=== PATIENT | male | born 1960 | race Caucasian/White ===

== ENCOUNTER → 2019-08-13 10:26 | Outpatient (POV) | payer BC, SELFPAY | PROVIDERS: Visit Provider Dermatology | DX: Z00.00 Encounter for general adult medical examination without abnormal findings (principal) ==

== ENCOUNTER → 2019-09-23 09:47 | Outpatient (CLI) | payer BC, SELFPAY ==
--- NOTE | 2019-09-23 09:55 | US_ITS ---
PROCEDURE: US THYROID CLINICAL INDICATION: THYROMEGALY Thyromegaly with sore throat COMPARISON: No exams were available for comparison FINDINGS: Right lobe: 3.8 x 1.3 x 1.4 cm. 3 mm hypoechoic nodule mid polar region. 3 mm hypoechoic nodule lower pole. 4 mm hypoechoic nodule lower pole. These hypoechoic nodules are felt represent small cyst Left lobe: 4.4 x 2.2 x 2.6 cm. There is a 4 x 2.4 x 1.7 cm solid-appearing heterogeneous nodule post the left lobe of the thyroid gland. There is some coarse calcification centrally and there are some small cystic areas. This lesion is wider than tall. There is hypervascularity along the periphery of this nodule there is an additional hypoechoic nodule in the lower pole at 1.3 cm Isthmus: Unremarkable Additional findings: IMPRESSION: Dominant left thyroid nodule at 4 x 2.4 x 1.7 cm T rads level 4 moderately suspicious. Recommend ultrasound-guided fine needle aspiration. Dictated by: Eleuterio Cook MD 09/23/2019 12:37 Electronically signed by Eleuterio Cook MD in [place] 09/23/2019 12:37
== END ==
PROVIDERS: PCP Family Medicine; Visit Provider Family Medicine
DX: E01.0 Iodine-deficiency related diffuse (endemic) goiter (principal)
CPT/HCPCS: 76536

== ENCOUNTER → 2019-10-09 09:53 | Outpatient (CLI) | payer BC, SELFPAY ==
--- NOTE | 2019-10-09 10:01 | US_ITS ---
PROCEDURE: US FNA THYROID CLINICAL INDICATION: THYROID NODULE Dominant left thyroid nodule, T rads level 4 moderately suspicious COMPARISON: US THYROID from 09/23/2019 TECHNIQUE: Following obtaining informed consent, using aseptic technique and local anesthesia with buffered lidocaine, fine-needle aspiration was performed of the nodule of interest using sonographic guidance. 3 passes were made into the nodule with a 21-gauge needle. Specimen was given to cytology. FINDINGS: Two different specimen worse submitted from the same nodule 1 of which was fairly bloody. CYTOLOGY: Specimen A: Negative for malignant cells. Benign follicular nodule Specimen B was mostly bloody with less than 6 follicular groups. These were both from the same nodule IMPRESSION: Uneventful ultrasound-guided fine needle aspiration dominant left-sided thyroid nodule showing benign findings. The patient tolerated the procedure well without evidence of immediate complications and left the ultrasound suite in stable condition. Dictated by: Eleuterio Cook MD 10/30/2019 17:08 Electronically signed by Eleuterio Cook MD in [place] 10/30/2019 17:08
== END ==
PROVIDERS: PCP Family Medicine; Visit Provider Family Medicine
DX: E04.1 Nontoxic single thyroid nodule (principal)
CPT/HCPCS: 10005; 10006; 76942

== ENCOUNTER → 2021-07-19 16:38 | Outpatient (CLI) | payer OTHER, SELFPAY ==
[2021-07-19 18:19] LABS: Chloride 99 mmol/L (98-107); Sodium 139 mmol/L (136-145)
[2021-07-19 18:20] LABS: Potassium 4.6 mmoL/L (3.5-5.1)
[2021-07-19 18:23] LABS: Anion Gap 14.6 mEq/L (5-15); Blood Urea Nitrogen 18 mg/dl (9-20); Calcium 9.9 mg/dl (8.4-10.2); Carbon Dioxide 30 mmol/L (22.0-30.0); Estimated Glomerular Filt Rate 99 ml/min (>60); GFR (African American) 120 ML/MIN (>60); Glucose 113 mg/dl (74-100)
== END ==
PROVIDERS: Visit Provider Family Medicine
DX: E11.9 Type 2 diabetes mellitus without complications (principal); Z79.84 Long term (current) use of oral hypoglycemic drugs
CPT/HCPCS: 36415; 80048; 83036

== ENCOUNTER 2021-11-16 16:21 | Emergency (ER) | payer OTHER, SELFPAY ==
[2021-11-16 17:41] VITALS: BP 138/76; PULSE 85; RESP 16; TEMP 36.8; O2SAT 97; BMI 22.4
--- NOTE | 2021-11-16 18:06 | HMH.EDUTC ---
[facility] [place] Clinical Impression: Cellulitis Qualifiers: Site of cellulitis: extremity Site of cellulitis of extremity: upper extremity Laterality: left Qualified Code(s): L03.114 - Cellulitis of left upper limb Disposition: Home, Self-Care Condition on Discharge: Good Instructions: Cellulitis Additional Instructions: Take tylenol or ibuprofen for pain or fever. Take the medications as directed. Follow up with your regular doctor. GO TO THE ER FOR ANY WORSENING SYMPTOMS Prescriptions: Sulfamethoxazole/Trimethoprim [Bactrim DS tablet] 1 each PO BID 10 Days #20 tab [facility] cephALEXin [cephALEXin 500mg capsule] 500 mg PO Q6H 10 Days #40 cap Transmission Status: [facility] methylPREDNISolone [Medrol] 4 mg PO DIRECTED 6 Days #21 packet Transmission Status: Received by [id number] Triamcinolone Acetonide 1 applicatio TP TIDP PRN 7 Days #1 gm PRN Reason: Itching Transmission Status: [facility] Referrals: Alfred Fong MD [Primary Care Provider] - Time of Disposition: 18:32 Medical Decision Making - Medical Records Medical records reviewed: No: I reviewed the patient's medical records. - Cma Inquiry Pt receiving controlled substance: No Vital Signs: 11/16/21 17:41 11/16/21 18:40 Temperature 98.3 F 98.3 F Temperature Source Oral Pulse Rate 85 Pulse Rate [Left Radial] 85 Respiratory Rate 16 16 Blood Pressure 138/76 Blood Pressure [Right Arm] 138/76 Blood Pressure Mean [Right Arm] 96 Blood Pressure Source [Right Arm] Automatic Cuff Blood Pressure Position [Right Arm] Sitting 02 Sat by Pulse Oximetry 97 Oxygen Delivery Method Room Air Orders (Tests/Meds): ED MEDICATIONS Discontinued Medications Generic Name Dose Route Start Last Admin Trade Name Freq PRN Reason Stop Dose Admin Ceftriaxone Sodium 1 gm 11/16/21 18:06 11/16/21 18:17 Ceftriaxone 1gm Vial IM 11/16/21 18:07 1 gm ONCE ONE Administration Lidocaine HCl 0 ml 11/16/21 18:06 11/16/21 18:17 Lidocaine 1% 5ml Pf Vial IM 11/16/21 18:07 2 ml ONCE ONE Administration [facility] [place] - General Stated complaint: L arm possibly allergic reaction Time Seen by Provider: 11/16/21 18:07 Mode of Arrival: Ambulatory Source of Information: Patient Limitations: No Limitations Description of Symptoms (Recalled from Triage Doc. by RN): C/O redness, swelling and rash to left forearm. Advises that he noticed a bite/sting kannan on Monday evening, itching become worse yesterday, and the redness and swelling has worsened and spread today. HEENT Symptoms (Recalled from RN notes): No Resp Symptoms (Recalled from RN notes): No Skin Symptoms (Recalled from RN notes): Yes (left forearm rash) MS Symptoms (Recalled from RN notes): No Functional Status (Recalled from RN notes): n/a - History of Present Illness Provider Complaint: He states that he thinks that something bit him on his left arm 3 days ago. He states that today, he started that today he began having redness of his left arm in 3 differnt areas. HE is a type 2 diabetic. - Related Data Home Medications Medication Instructions Recorded Confirmed Metformin HCl [Glucophage 500mg 1,000 mg PO BID MDD 199901/11/18 09/15/20 Tablet] Simvastatin 20 mg PO HS 01/11/18 09/15/20 lisinopriL [Lisinopril 20mg Tab] 20 mg PO DAILY 01/11/18 09/15/20 Previous Rx's Medication Instructions Recorded amoxicillin 500 mg capsule 500 mg PO Q12H 10 Days #20 cap 09/02/19 Sulfamethoxazole/Trimethoprim 1 each PO BID 10 Days #20 tab 11/16/21 [Bactrim DS tablet] Triamcinolone Acetonide 1 applicatio TP TIDP PRN 7 Days #1 11/16/21 gm cephALEXin [cephALEXin 500mg 500 mg PO Q6H 10 Days #40 cap 11/16/21 capsule] methylPREDNISolone [Medrol] 4 mg PO DIRECTED 6 Days #21 11/16/21 packet Allergies Allergy/AdvReac Type Severity Reaction Status Date / Time
[2021-11-16 18:40] VITALS: BP 138/76; PULSE 85; RESP 16; TEMP 36.8
== END 2021-11-16 18:51 | disposition home or self-care (01) ==
PROVIDERS: Emergency Provider Nurse Practitioner Family; PCP Family Medicine
DX: L03.114 Cellulitis of left upper limb (principal); I10 Essential (primary) hypertension; E78.5 Hyperlipidemia, unspecified; E11.9 Type 2 diabetes mellitus without complications; Z79.84 Long term (current) use of oral hypoglycemic drugs; Z79.899 Other long term (current) drug therapy; Z88.0 Allergy status to penicillin; Z88.1 Allergy status to other antibiotic agents; Z88.3 Allergy status to other anti-infective agents; Z85.9 Personal history of malignant neoplasm, unspecified; Z82.49 Family history of ischemic heart disease and other diseases of the circulatory system; Z83.49 Family history of other endocrine, nutritional and metabolic diseases
CPT/HCPCS: 96372; 99213; G0463; J0696

== ENCOUNTER → 2022-01-05 10:38 | Outpatient (CLI) | payer OTHER, SELFPAY ==
[2022-01-05 11:10] LABS: Creatinine,Urine Random 83 mg/dL (Not Estab.)
[2022-01-05 11:20] LABS: Microalbumin < 6.000 mg/L (0-16.7)
[2022-01-05 11:50] LABS: Hemoglobin A1C 6.4 % (4.0-6.0)
[2022-01-05 11:51] LABS: Chloride 102 mmol/L (98-107); Potassium 4.4 mmoL/L (3.5-5.1); Sodium 140 mmol/L (136-145)
[2022-01-05 11:54] LABS: Alanine Aminotransferase 29 U/L (12-78); Albumin Level 4.7 g/dl (3.5-5.0); Albumin/Globulin Ratio 1.8 (1.1-1.8); Alkaline Phosphatase 63 U/L (38-126); Anion Gap 12.4 mEq/L (5-15); Aspartate Amino Transferase 43 U/L (17-59); Bilirubin,Total 0.7 mg/dl (0.2-1.3); Blood Urea Nitrogen 15 mg/dl (9-20); Calcium 9.8 mg/dl (8.4-10.2); Carbon Dioxide 30 mmol/L (22.0-30.0); Cholesterol 162 mg/dl (140-200); Estimated Glomerular Filt Rate 115 ml/min (>60); GFR (African American) 140 ML/MIN (>60); Globulin 2.6 g/dL (1.3-3.2); Glucose 144 mg/dl (74-100); Total Protein,Serum 7.3 g/dl (6.3-8.2); Triglycerides 87 mg/dl (30-150); VLDL Cholesterol 17 mg/dL (0-40)
[2022-01-05 11:55] LABS: Chol/HDL Ratio 2.9 (1-3.5); HDL Cholesterol 55 mg/dl (40-60)
[2022-01-05 12:05] LABS: Direct LDL Cholesterol 86.76 mg/dL (100-129)
[2022-01-05 12:42] LABS: Prostate Specific Ag Screen 1.5 ng/ml (0.0-4.0)
== END ==
PROVIDERS: PCP Family Medicine; Visit Provider Family Medicine
DX: E11.9 Type 2 diabetes mellitus without complications (principal); R80.9 Proteinuria, unspecified; E78.5 Hyperlipidemia, unspecified; Z79.84 Long term (current) use of oral hypoglycemic drugs; Z12.5 Encounter for screening for malignant neoplasm of prostate
CPT/HCPCS: 36415; 80053; 80061; 82043; 82570; 83036; 84443; G0103